=== PATIENT | male | born 1985 | race Caucasian/White ===

== ENCOUNTER 2017-07-31 10:48 | Emergency (ER) | payer SELFPAY ==
[2017-07-31 10:53] VITALS: TEMP 98; BMI 23.4
--- NOTE | 2017-07-31 12:12 | PDOC ---
History of Present Illness - General History Source: Patient Exam Limitations: No Limitations - History of Present Illness Initial Comments: 07/31/17 12:12 Patient is a 32-year-old male with past medical history of alcohol abuse, cocaine abuse, who presents to the emergency department today requesting alcohol detox. States that his last drink was this morning. He drank approximately a pint of vodka. He states that he has no complaints at this time. Patient denies anxiety, suicidal ideation, homicidal ideation, audio and visual hallucinations. Denies fevers, chills, abdominal pain, nausea, vomiting, diarrhea, frequency, urgency, hematuria, chest pain and shortness of breath. Drug use: Cocaine. (-) IVDU Alcohol: Vodka, Drank a pint of vodka today Smoking 40 pack year hx. <Mayte Mahmood - Last Filed: 07/31/17 14:07> <Madeline Black - Last Filed: 07/31/17 17:25> - General Chief Complaint: Alcohol intoxication Stated Complaint: DETOX alcohol,coccaine Time Seen by Provider: 07/31/17 11:27 Past History - Travel Traveled outside of the country in the last 30 days: No Close contact w/someone who was outside of country & ill: No - Past Medical History COPD: No GI Disorders: Yes (ulcers) - Surgical History Abdominal Surgery: No - Suicide/Smoking/Psychosocial Hx Smoking History: Current every day smoker Have you smoked in the past 12 months: Yes Number of Cigarettes Smoked Daily: 40 Information on smoking cessation initiated: Yes 'Breaking Loose' booklet given: 07/31/17 Hx Alcohol Use: Yes (daily) Drug/Substance Use Hx: Yes (coccaine) Substance Use Type: Alcohol, Cocaine <Mayte Mahmood - Last Filed: 07/31/17 14:07> <Madeline Black - Last Filed: 07/31/17 17:25> - Past Medical History Allergies/Adverse Reactions: Allergies Allergy/AdvReac Type Severity Reaction Status Date / Time No Known Allergies Allergy Verified 07/31/17 10:49 Home Medications: Ambulatory Orders NK [No Known Home Medication] 07/31/17 Review of Systems - Review of Systems Able to Perform ROS?: Yes Comments:: 07/31/17 14:22 CONSTITUTIONAL: Absent: fever, chills, diaphoresis, generalized weakness, malaise, loss of appetite HEENT: Absent: rhinorrhea, nasal congestion, throat pain, throat swelling, difficulty swallowing, mouth swelling, ear pain, eye pain, visual Changes CARDIOVASCULAR: Absent: chest pain, loss of consciousness, palpitations, irregular heart rate, peripheral edema RESPIRATORY: Absent: cough, shortness of breath, dyspnea with exertion, orthopnea, wheezing, stridor, hemoptysis GASTROINTESTINAL: Absent: abdominal pain, abdominal distension, nausea, vomiting, diarrhea, constipation, melena, hematochezia GENITOURINARY: Absent: dysuria, frequency, urgency, hesitancy, hematuria, flank pain, genital pain MUSCULOSKELETAL: Absent: myalgia, arthralgia, joint swelling SKIN: Absent: rash, itching, pallor HEMATOLOGIC/IMMUNOLOGIC: Absent: easy bleeding, easy bruising, lymphadenopathy, frequent infections ENDOCRINE: Absent: unexplained weight gain, unexplained weight loss, heat intolerance, cold intolerance NEUROLOGIC: Absent: headache, focal weakness or paresthesias, dizziness, unsteady gait, seizure, mental status changes, bladder or bowel incontinence PSYCHIATRIC: Absent: anxiety, depression, suicidal or homicidal ideation, hallucinations. Is the patient limited Togolese proficient: No <Mayte Mahmood - Last Filed: 07/31/17 14:07> *Physical Exam - Vital Signs Last Vital Signs Temp Pulse Resp BP Pulse Ox 98.0 F 72 18 116/77 100 07/31/17 10:50 07/31/17 10:50 07/31/17 10:50 07/31/17 10:50 07/31/17 10:50 - Physical Exam Comments: 07/31/17 14:25 GENERAL: Well developed, well nourished. Awake and alert x3. No slurring of speech. No acute distress. Alcohol on the breath. HEENT: Normocephalic, atraumatic. PERRLA, EOMI. No conjunctival pallor. Sclera are non- icteric. Moist mucous membranes. Oropharynx is clear. NECK: Supple. Full ROM. No JVD. Carotid pulses 2+ and symmetric, without bruits. No thyromegaly. No lymphadenopathy. CARDIOVASCULAR: Regular rate and rhythm. No murmurs, rubs, or gallops. Distal pulses are 2+ and symmetric. PULMONARY: No evidence of respiratory distress. Lungs clear to auscultation bilaterally. No wheezing, rales or rhonchi. ABDOMINAL: Soft. Non-tender. Non-distended. No rebound or guarding. No organomegaly. Normoactive bowel sounds. MUSCULOSKELETAL Normal range of motion at all joints. No bony deformities or tenderness. No CVA tenderness. EXTREMITIES: No cyanosis. No clubbing. No edema. No calf tenderness. SKIN: Warm and dry. Normal capillary refill. No rashes. No jaundice. NEUROLOGICAL: Alert, awake, appropriate. Cranial nerves 2-12 intact. No deficits to light touch and temperature in face, upper extremities and lower extremities. No motor deficits in the in face, upper extremities and lower extremities. Normoreflexic in the upper and lower extremities. Normal speech. Toes are down- going bilaterally. Gait is normal without ataxia. PSYCHIATRIC: Cooperative. Good eye contact. Appropriate mood and affect. <Mayte Mahmood - Last Filed: 07/31/17 14:07> - Vital Signs Last Vital Signs Temp Pulse Resp BP Pulse Ox 98.0 F 78 18 138/78 98 07/31/17 14:45 07/31/17 14:45 07/31/17 14:45 07/31/17 14:45 07/31/17 14:45 <Madeline Black - Last Filed: 07/31/17 17:25> Medical Decision Making - Medical Decision Making 07/31/17 14:26 Patient is a 32-year-old male with past medical history of alcohol and cocaine abuse, who presents to the emergency department today requesting alcohol detox. Patient's last drink was today. He drank a pint of vodka. He is currently stable in the emergency department. A&O3, patient afebrile, vital signs stable. No suicidal/homicidal ideation, audio or visual hallucinations. Patient with no sign of DTs or tremors. Case discussed with Dr. Wiggins at [facility]. Will take patient over at intake for detox. Pt to be discharged to [facility]. Return precautions given. Patient understand all discharge instructions and all questions were answered. <Mayte Mahmood - Last Filed: 07/31/17 14:07> *DC/Admit/Observation/Transfer - Discharge Dispostion Decision to Admit order: No <Mayte Mahmood - Last Filed: 07/31/17 14:07> - Attestations Physician Attestion: I reviewed the case with the mid-level practitioner and agree with the mid- level practitioner's assessment, diagnosis and disposition. <Madeline Black - Last Filed: 07/31/17 17:25> Diagnosis at time of Disposition: Desire for detoxification - Discharge Dispostion Disposition: HOME Condition at time of disposition: Stable - Referrals Referrals: Enoch Coreas MD [Staff Physician] - - Patient Instructions Printed Discharge Instructions: DI for Alcohol Abuse Additional Instructions: Please go to [facility] at this time for alcohol detox. Please avoid drinking alcohol and using drugs. Return to the emergency department if you have fevers, chills, worsening of your symptoms or if you have any changes in your symptoms.
[2017-07-31 14:47] VITALS: BP 138/78; PULSE 78
== END 2017-07-31 14:44 | disposition home or self-care (01) ==
LOC: JER 10:48
DX: F10.120 Alcohol abuse with intoxication, uncomplicated (principal); F14.10 Cocaine abuse, uncomplicated; F17.210 Nicotine dependence, cigarettes, uncomplicated; Y90.9 Presence of alcohol in blood, level not specified
CPT/HCPCS: 99283-25

== ENCOUNTER 2017-07-31 15:33 | Inpatient (IN) | payer SELFPAY ==
[2017-07-31 16:52] VITALS: BMI 23.3
--- NOTE | 2017-07-31 17:15 | HP ---
CIWA Score - CIWA Score Nausea/Vomitin-No Nausea/No Vomiting Muscle Tremors: 2 Anxiety: 2 Agitation: 4-Moderately Restless Paroxysmal Sweats: 4-Forehead w/Sweat Beads Orientation: 2-Disoriented Date<2 days Tacttile Disturbances: 0-None Auditory Disturbances: 0-None Visual Disturbances: 0-None Headache: 1-Very Mild (r/t withdrawal) CIWA-Ar Total Score: 15 Admission ROS S - HPI Chief Complaint: Here for alcohol and cocaine detox. Allergies/Adverse Reactions: Allergies Allergy/AdvReac Type Severity Reaction Status Date / Time No Known Allergies Allergy Verified 07/31/17 10:49 History of Present Illness: 32 yom brought to [facility] ER today by brother. Was seen in [facility] and recommended for detox. patient [presents with a hx of alcohol use since age 11 and cocaine use since age 13. Nicotine use since age 11. Denies other illicit substance use. States has only been able to achieve 4 days of sobriety in the past 10 plus years. This is the first detox attempt of this patient. He denies any significant PMH/PSH except for stomach ulcers years ago. Present with hx of untreated depression and denies any suicide or violent ideation. - Ebola screening Have you traveled outside of the country in the last 21 days: No Have you had contact with anyone from an Ebola affected area: No Have you been sick,other than usual withdrawal symptoms: No Do you have a fever: No - Review of Systems Constitutional: Diaphoresis (r/t withdrawal), Fever, Changes in sleep ( Difficulty falling asleep and staying asleep. Takes OTC ZZZQuil), Unintentional Wgt. Loss (Feels have lost several lbs in past few months.) EENT: reports: Nose Congestion Respiratory: reports: No Symptoms reported Cardiac: reports: No Symptoms Reported GI: reports: Other (Hx. gastric ulcer. Denies current burning/reflux. Stools brown and w/o blood. No meds.) : reports: No Symptoms Reported Musculoskeletal: reports: No Symptoms Reported Integumentary: reports: No Symptoms Reported Neuro: reports: Headache (r/t withdrawal) Endocrine: reports: No Symptoms Reported Hematology: reports: No Symptoms Reported Psychiatric: reports: Agitated, Anxious, Depressed (Depression entire life. Denies suicide or violent ideation.), Disorientated (Knows month and year.) Patient History - Patient Medical History Hx Anemia: No Hx Asthma: Yes (as a child. Denies recent exacerbations) Hx Chronic Obstructive Pulmonary Disease (COPD): No Hx Cancer: No Hx Cardiac Disorders: No Hx Congestive Heart Failure: No Hx Hypertension: No Hx Hypercholesterolemia: No Hx Pacemaker: No HX Cerebrovascular Accident: No Hx Seizures: No Hx Dementia: No Hx Diabetes: No Hx Gastrointestinal Disorders: Yes (ulcers - years ago. No recent medications) Hx Liver Disease: No Hx Genitourinary Disorders: No Hx Sexually Transmitted Disorders: No Hx Renal Disease (ESRD): No Hx Thyroid Disease: No Hx Human Immunodeficiency Virus (HIV): No (Not sexually active) Hx Hepatitis C: No Hx Depression: Yes (Denies S/) Hx Suicide Attempt: No Hx Bipolar Disorder: No Hx Schizophrenia: No - Patient Surgical History Past Surgical History: No Hx Abdominal Surgery: No - PPD History Previous Implant?: Yes PPD to be Administered?: Yes - Smoking Cessation Smoking history: Current every day smoker Have you smoked in the past 12 months: Yes Aproximately how many cigarettes per day: 40 Hx Chewing Tobacco Use: No Initiated information on smoking cessation: Yes 'Breaking Loose' booklet given: 07/31/17 - Substance & Tx. History Hx Alcohol Use: Yes Hx Substance Use: Yes Substance Use Type: Alcohol, Cocaine, Marijuana Hx Substance Use Treatment: No (First detox/treatment attempt) - Substances Abused Alcohol Route: Oral Frequency: Daily Amount used: 6 - 12 oz beers , 1/2 pint liquor Age of first use: 11 Date of Last Use: 07/31/17 (Vodka at 10 am) Cocaine Route: Inhalation Frequency: Daily Amount used: 1 gm Age of first use: 13 Date of Last Use: 07/30/17 ( 2 am) Marijuana/Hashish Route: Smoking Amount used: 3 joints Age of first use: 11 Date of Last Use: 07/30/17 ( 10 pm ) Family Disease History - Family Disease History Family Disease History: [place]: Father (Prostate) Admission Physical Exam BHS - Vital Signs Vital Signs: Vital Signs - 24 hr 07/31/17 16:50 Temperature 97.8 F Pulse Rate 83 Respiratory 18 Rate Blood Pressure 110/60 - Physical General Appearance: Yes: Tremorous, Sweating (Beads of sweat on forehead.), Anxious HEENTM: Yes: EOMI, Hearing grossly Normal, Normal Voice, ANATOLY Respiratory: Yes: Chest Non-Tender, Lungs Clear, Normal Breath Sounds Neck: Yes: No masses,lesions,Nodules, Supple Breast: Yes: Breast Exam Deferred Cardiology: Yes: Regular Rhythm, Regular Rate, S1, S2 Abdominal: Yes: Normal Bowel Sounds, Non Tender, Flat, Soft Genitourinary: Yes: Within Normal Limits Back: Yes: Normal Inspection Musculoskeletal: Yes: full range of Motion, Gait Steady Extremities: Yes: Normal Capillary Refill, Normal Range of Motion, Non-Tender, Tremors (Hands upon extension.) Neurological: Yes: fish protector II-XII NML intact, Motor Strength 5/5, Normal Response Integumentary: Yes: Normal Color, Dry (Decreased skin turgor.), Warm Lymphatic: Yes: Within Normal Limits - Diagnostic (1) Alcohol dependence with uncomplicated withdrawal Current Visit: Yes Status: Acute (2) Cocaine dependence Current Visit: Yes Status: Acute Qualifiers: Substance use status: in withdrawal Qualified Code(s): F14.23 - Cocaine dependence with withdrawal (3) Dehydration Current Visit: Yes Status: Acute Cleared for Admission [facility] - Detox or Rehab [facility] Level of Care: Medically Managed Detox Regimen/Protocol: Valium [facility] Breath Alcohol Content Breath Alcohol Content: 0.010 Urine Drug Screen - Results Drug Screen Negative: No Urine Drug Screen Results: THC-Marijuana, LASHONDA-Cocaine
[2017-07-31] MEDS ORDERED: IBUPROFEN 400 MG TABLET (FP) PO PRN (17:40)
[2017-07-31] MEDS ORDERED: diazePAM 5 MG TABLET PO PRN (17:40)
[2017-07-31] MEDS ORDERED: guaiFENesin/D-METHORPHAN HB 10 ML UNIT-DOSE CUPS PO PRN (17:40)
[2017-07-31] MEDS ORDERED: MAGNESIUM CITRATE 300 ML BOTTLE PO PRN (17:40)
[2017-07-31] MEDS ORDERED: MAGNESIUM HYDROX 2400MG/30ML ORAL SUSPENSION 30 ML CUP PO PRN (17:40)
[2017-07-31] MEDS ORDERED: ACETAMINOPHEN 325 MG TABLET (FP) PO PRN (17:40)
[2017-07-31] MEDS ORDERED: MAG HYDROX/AL HYDROX/SIMETH 30 ML UNIT-DOSE CUP PO PRN (17:40)
[2017-07-31] MEDS ORDERED: hydrOXYzine PAMOATE 50 MG CAPSULE (FP) PO PRN (17:40)
[2017-07-31] MEDS ORDERED: MENTHOL/PHENOL 1 EACH UD MM PRN (17:40)
[2017-07-31] MEDS ORDERED: LOPERAMIDE HCL 2 MG CAPSULE PO PRN (17:40)
[2017-07-31] MEDS ORDERED: P-EPHED 60MG/TRIPROLIDI 2.5MG TABLET PO PRN (17:40)
[2017-07-31] MEDS ORDERED: diazePAM 5 MG TABLET PO ONE (18:30)
[2017-07-31] MEDS ORDERED: MELATONIN 5 MG TABLETS PO PRN (22:00)
[2017-07-31] MEDS: THIAMINE HCL 100 MG TABLET (FP) PO SCH (22:32)
[2017-07-31] MEDS: diazePAM 5 MG TABLET PO SCH (22:32)
[2017-07-31 23:13] LABS: URINE APPEARANCE CLEAR; URINE BILIRUBIN NEGATIVE (<2.0 mg/dL); URINE COLOR STRAW; URINE GLUCOSE (UA) NEGATIVE (NEGATIVE); URINE KETONE NEGATIVE (NEGATIVE); URINE LEUK ESTERASE NEGATIVE (NEGATIVE); URINE NITRITE NEGATIVE (NEGATIVE); URINE PROTEIN NEGATIVE (NEGATIVE); URINE UROBILINOGEN NEGATIVE mg/dL (0.2-1.0)
[2017-08-01] MEDS: diazePAM 5 MG TABLET PO SCH ×3 (05:10→22:30)
[2017-08-01] MEDS: NICOTINE POLACRILEX 4 MG GUM BC PRN ×4 (08:43→20:51)
[2017-08-01 09:57] LABS: HEMATOCRIT 46.4 % (35.4-49); HEMOGLOBIN 15.9 GM/dL (11.7-16.9); MCH 30.3 pg (25.7-33.7); MCHC 34.2 g/dl (32.0-35.9); MEAN CELL VOLUME 88.4 fl (80-96); MEAN PLT VOLUME 9.5 fl (7.5-11.1); PLATELET COUNT 189 K/MM3 (134-434); RBC 5.25 M/mm3 (4.00-5.60); RDW 13.1 % (11.9-15.9)
[2017-08-01] MEDS ORDERED: NICOTINE 21 MG/24 HOURS TOPICAL PATCH TD SCH (10:00)
[2017-08-01] MEDS ORDERED: PRENATAL VITAMINS W/ FOLIC ACID TABLET (FP) PO SCH (10:00)
[2017-08-01 10:08] LABS: CHLORIDE 107 mmol/L (98-107); SODIUM 141 mmol/L (136-145)
--- NOTE | 2017-08-01 10:17 | PN ---
[facility] CIWA - CIWA Score Nausea/Vomitin-Mild Nausea/No Vomiting Muscle Tremors: 4-Moderate,w/Arms Extend Anxiety: 4-Mod. Anxious/Guarded Agitation: 4-Moderately Restless Paroxysmal Sweats: No Perspiration Orientation: 0-Oriented Tacttile Disturbances: 0-None Auditory Disturbances: 0-None Visual Disturbances: 0-None Headache: 0-None Present CIWA-Ar Total Score: 13 BHS Progress Note (SOAP) Subjective: SWEAT TREMOR TROUBLE SLEEP AT NIGHT CARDIAC ARRHYTHEMIA X "YEARS" DENIES DIZZINESS NO SHORTNESS OF BREATH Objective: 08/01/17 10:20 Vital Signs Temperature 96.1 F L 08/01/17 09:00 Pulse Rate 53 L 08/01/17 09:00 Respiratory Rate 18 08/01/17 09:00 Blood Pressure 108/66 08/01/17 09:00 O2 Sat by Pulse Oximetry (%) Laboratory Last Values WBC 9.0 K/mm3 (4.0-10.0) 08/01/17 07:00 RBC 5.25 M/mm3 (4.00-5.60) 08/01/17 07:00 Hgb 15.9 GM/dL (11.7-16.9) 08/01/17 07:00 Hct 46.4 % (35.4-49) 08/01/17 07:00 MCV 88.4 fl (80-96) 08/01/17 07:00 MCH 30.3 pg (25.7-33.7) 08/01/17 07:00 MCHC 34.2 g/dl (32.0-35.9) 08/01/17 07:00 RDW 13.1 % (11.9-15.9) 08/01/17 07:00 Plt Count 189 K/MM3 (134-434) 08/01/17 07:00 MPV 9.5 fl (7.5-11.1) 08/01/17 07:00 Urine Color Straw 07/31/17 22:58 Urine Appearance Clear 07/31/17 22:58 Urine pH 5.0 (5.0-8.0) 07/31/17 22:58 Ur Specific [place] 1.010 (1.001-1.035) 07/31/17 22:58 Urine Protein Negative (NEGATIVE) 06/25/18 22:58 Urine Glucose (UA) Negative (NEGATIVE) 07/31/17 22:58 Urine Ketones Negative (NEGATIVE) 07/31/17 22:58 Urine Blood Negative (NEGATIVE) 07/31/17 22:58 Urine Nitrite Negative (NEGATIVE) 07/31/17 22:58 Urine Bilirubin Negative (<2.0 mg/dL) 07/31/17 22:58 Urine Urobilinogen Negative mg/dL (0.2-1.0) 07/31/17 22:58 Ur Leukocyte Esterase Negative (NEGATIVE) 07/31/17 22:58 LAB NOTED Assessment: 08/01/17 10:21 WITHDRAWAL SX CARDIAC ARRHYTHEMIA Plan: CONTINUE DETOX BEGIN ASPIRIN 81 MG PO DAILY HEALTH TEACHING ON COCAINE RELATED HEALTH ISSUES
[2017-08-01 10:41] LABS: ALBUMIN 3.8 g/dl (3.4-5.0); ALK PHOS 72 U/L (45-117); ANION GAP 6 (8-16); BILIRUBIN,TOTAL 0.5 mg/dL (0.2-1.0); BLOOD UREA NITROGEN 18 mg/dL (7-18); CALCIUM 9.2 mg/dL (8.5-10.1); CO2 28 mmol/L (21-32); CREATININE 1.2 mg/dL (0.7-1.3); GLUCOSE,RANDOM 82 mg/dL (74-106); SGOT/AST 22 U/L (15-37); SGPT/ALT 29 U/L (12-78); TOT PROT 6.8 g/dl (6.4-8.2)
[2017-08-01] MEDS ORDERED: ASPIRIN 81 MG CHEWABLE TABLETS PO SCH (10:45)
--- NOTE | 2017-08-01 15:01 | DS ---
[facility] Detox Discharge Summary Admission Date: 07/31/17 Discharge Date: 08/01/17 - Physical Exam Results Vital Signs: Vital Signs Temperature 97.3 F L 08/01/17 13:56 Pulse Rate 66 08/01/17 13:56 Respiratory Rate 17 08/01/17 13:56 Blood Pressure 113/73 08/01/17 13:56 O2 Sat by Pulse Oximetry (%) - Medication Discharge Medications: Ambulatory Orders NK [No Known Home Medication] 07/31/17 - Diagnosis (1) Alcohol dependence with uncomplicated withdrawal Current Visit: Yes Status: Acute
--- NOTE | 2017-08-01 15:36 | CONSULT ---
[facility] Psychiatric Consult - Data Date of interview: 08/01/17 Admission source: [facility] Identifying data: Patient is a 32 year old single male, without kids, domiciled and currently unemployed. This is patient's first admission to detox at [facility]. Pt. admitted to for alcohol and cocaine dependence. Substance Abuse History: Smoking Cessation. Smoking history: Current every day smoker. Have you smoked in the past 12 months: Yes. Aproximately how many cigarettes per day: 40. Hx Chewing Tobacco Use: No. Initiated information on smoking cessation: Yes. 'Breaking Loose' booklet given: 07/31/17. - Substance & Tx. History. Hx Alcohol Use: Yes. Hx Substance Use: Yes. Substance Use Type : Alcohol, Cocaine, Marijuana. Hx Substance Use Treatment: No (First detox/ treatment attempt). - Substances Abused. Alcohol. Route: Oral. Frequency : Daily. Amount used: 6 - 12 oz beers , 1/2 pint liquor. Age of first use: 11. Date of Last Use: 07/31/17 (Vodka at 10 am). Cocaine. Route: Inhalation. Frequency: Daily. Amount used: 1 gm. Age of first use: 13. Date of Last Use: 07/30/17 ( 2 am). Marijuana/Hashish. Route: Smoking. Amount used: 3 joints. Age of first use: 11. Date of Last Use: 07/30/17 ( 10 pm ) Medical History: Asthma Psychiatric History: Patient denies h/o psychiatric hospitalization, outpatient care, and suicide attempt. Physical/Sexual Abuse/Trauma History: Denies. Mental Status Exam - Mental Status Exam Alert and Oriented to: Time, Place, Person Cognitive Function: Good Patient Appearance: Well Groomed Mood: Hopeful Affect: Mood Congruent Patient Behavior: Appropriate, Cooperative Speech Pattern: Clear, Appropriate Voice Loudness: Normal Thought Process: Intact, Goal Oriented Thought Disorder: Not Present Hallucinations: Denies Suicidal Ideation: Denies Homicidal Ideation: Denies Insight/Judgement: Poor Sleep: Poorly Appetite: Fair Muscle strength/Tone: Normal Gait/Station: Normal Psychiatric Findings - Problem List ([place] 1, 2,3) (1) Insomnia Current Visit: Yes Status: Acute (2) Alcohol dependence with uncomplicated withdrawal Current Visit: Yes Status: Acute (3) Cocaine dependence Current Visit: Yes Status: Acute Qualifiers: Substance use status: in withdrawal Qualified Code(s): F14.23 - Cocaine dependence with withdrawal - Initial Treatment Plan Initial Treatment Plan: Psychoeducation provided. Detoxification in progress. Melatonin 5mg ordered for insomnia by GUIDE. Pt informed.
[2017-08-01] MEDS: THIAMINE HCL 100 MG TABLET (FP) PO SCH (22:30)
[2017-08-02 07:44] VITALS: BP 111/78; PULSE 50; TEMP 97.3
[2017-08-02] MEDS: NICOTINE POLACRILEX 4 MG GUM BC PRN (08:19)
[2017-08-02] MEDS ORDERED: diazePAM 5 MG TABLET PO SCH (10:00)
--- NOTE | 2017-08-02 12:16 | DS ---
[facility] Detox Discharge Summary Admission Date: 07/31/17 Discharge Date: 08/02/17 - History Present History: Alcohol Dependence, Cocaine Dependence Additional Comments: 32 years old male admitted for alcohol withdrawal sx stated does not have issue with alcohol drinking but cocaine "is out of control " patient wants to return home and support by the family members and return to workforce first detox admission recommend chemical rehabilitation recovery facility or community health services for psychoeducation and strenghten coping skills - Physical Exam Results Vital Signs: Vital Signs Temperature 97.3 F L 08/02/17 07:44 Pulse Rate 50 L 08/02/17 07:44 Respiratory Rate 18 08/02/17 07:44 Blood Pressure 111/78 08/02/17 07:44 O2 Sat by Pulse Oximetry (%) Pertinent Admission Physical Exam Findings: cocaine dependence Vital Signs Temperature 97.3 F L 08/02/17 07:44 Pulse Rate 50 L 08/02/17 07:44 Respiratory Rate 18 08/02/17 07:44 Blood Pressure 111/78 08/02/17 07:44 O2 Sat by Pulse Oximetry (%) Laboratory Last Values WBC 9.0 K/mm3 (4.0-10.0) 08/01/17 07:00 RBC 5.25 M/mm3 (4.00-5.60) 08/01/17 07:00 Hgb 15.9 GM/dL (11.7-16.9) 08/01/17 07:00 Hct 46.4 % (35.4-49) 08/01/17 07:00 MCV 88.4 fl (80-96) 08/01/17 07:00 MCH 30.3 pg (25.7-33.7) 08/01/17 07:00 MCHC 34.2 g/dl (32.0-35.9) 08/01/17 07:00 RDW 13.1 % (11.9-15.9) 08/01/17 07:00 Plt Count 189 K/MM3 (134-434) 08/01/17 07:00 MPV 9.5 fl (7.5-11.1) 08/01/17 07:00 Sodium 141 mmol/L (136-145) 08/01/17 07:00 Potassium 4.0 mmol/L (3.5-5.1) 08/01/17 07:00 Chloride 107 mmol/L (98-107) 08/01/17 07:00 Carbon Dioxide 28 mmol/L (21-32) 08/01/17 07:00 Anion Gap 6 (8-16) L 08/01/17 07:00 BUN 18 mg/dL (7-18) 08/01/17 07:00 Creatinine 1.2 mg/dL (0.7-1.3) 08/01/17 07:00 Creat Clearance w eGFR > 60 (>60) 08/01/17 07:00 Random Glucose 82 mg/dL (74-106) 08/01/17 07:00 Calcium 9.2 mg/dL (8.5-10.1) 08/01/17 07:00 Total Bilirubin 0.5 mg/dL (0.2-1.0) 08/01/17 07:00 AST 22 U/L (15-37) 08/01/17 07:00 ALT 29 U/L (12-78) 08/01/17 07:00 Alkaline Phosphatase 72 U/L (45-117) 08/01/17 07:00 Total Protein 6.8 g/dl (6.4-8.2) 08/01/17 07:00 Albumin 3.8 g/dl (3.4-5.0) 08/01/17 07:00 Urine Color Straw 07/31/17 22:58 Urine Appearance Clear 07/31/17 22:58 Urine pH 5.0 (5.0-8.0) 07/31/17 22:58 Ur Specific [place] 1.010 (1.001-1.035) 07/31/17 22:58 Urine Protein Negative (NEGATIVE) 07/31/17 22:58 Urine Glucose (UA) Negative (NEGATIVE) 07/31/17 22:58 Urine Ketones Negative (NEGATIVE) 07/31/17 22:58 Urine Blood Negative (NEGATIVE) 07/31/17 22:58 Urine Nitrite Negative (NEGATIVE) 07/31/17 22:58 Urine Bilirubin Negative (<2.0 mg/dL) 07/31/17 22:58 Urine Urobilinogen Negative mg/dL (0.2-1.0) 07/31/17 22:58 Ur Leukocyte Esterase Negative (NEGATIVE) 07/31/17 22:58 RPR Titer Nonreactive (NONREACTIVE) 08/01/17 07:00 lab noted - Treatment Hospital Course: Detox Protocol Followed, Responded well Patient has Accepted a Rehab Referral to: community self support meeting - Medication Discharge Medications: Ambulatory Orders NK [No Known Home Medication] 07/31/17 - Diagnosis (1) Alcohol dependence with uncomplicated withdrawal Status: Acute (2) Cocaine dependence Status: Chronic Qualifiers: Substance use status: in withdrawal Qualified Code(s): F14.23 - Cocaine dependence with withdrawal - AMA Did Patient Leave Against Medical Advice: Yes
--- NOTE | 2017-08-02 12:45 | EKG ---
Test Reason : Blood Pressure : / mmHG Vent. Rate : 060 BPM Atrial Rate : 060 BPM P-R Int : 172 ms QRS Dur : 092 ms QT Int : 418 ms P-R-T Axes : 066 042 045 degrees QTc Int : 418 ms NORMAL SINUS RHYTHM WITH SINUS ARRHYTHMIA SEPTAL INFARCT , AGE UNDETERMINED ABNORMAL ECG WHEN COMPARED WITH ECG OF 31-JUL-2017 19:01, SEPTAL INFARCT IS NOW PRESENT Confirmed by JOSELUIS RESENDEZ, JIM ([id number]) on 08/02/2017 12:45:05 PM Referred By: Confirmed By:JIM HUGGINS MD
--- NOTE | 2017-08-02 12:47 | EKG ---
Test Reason : Blood Pressure : / mmHG Vent. Rate : 068 BPM Atrial Rate : 068 BPM P-R Int : 154 ms QRS Dur : 096 ms QT Int : 396 ms P-R-T Axes : 070 044 051 degrees QTc Int : 421 ms SINUS RHYTHM WITH MARKED SINUS ARRHYTHMIA VOLTAGE CRITERIA FOR LEFT VENTRICULAR HYPERTROPHY ABNORMAL ECG NO PREVIOUS ECGS AVAILABLE Confirmed by JIM HUGGINS MD ([id number]) on 08/02/2017 12:46:57 PM Referred By: Confirmed By:JIM HUGGINS MD
[2017-08-04] MEDS ORDERED: diazePAM 5 MG TABLET PO SCH (10:00)
== END 2017-08-02 09:30 | disposition left against medical advice (07) | DRG 770 ==
LOC: YASAS 15:33 → Y6N 18:13
PROVIDERS: ADMIT Surgery; ATTEND Surgery
PROC: HZ2ZZZZ Detoxification Services for Substance Abuse Treatment (ICD-10-PCS; principal; 2017-07-31)
DX: F10.230 Alcohol dependence with withdrawal, uncomplicated (principal); F14.20 Cocaine dependence, uncomplicated; F17.210 Nicotine dependence, cigarettes, uncomplicated; F32.9 Major depressive disorder, single episode, unspecified; E86.0 Dehydration; Z87.09 Personal history of other diseases of the respiratory system; Z87.19 Personal history of other diseases of the digestive system
CPT/HCPCS: 36415; 80053; 81003; 85027; 86593; 93005; 93010